=== PATIENT | female | born 1995 | race Caucasian/White ===

== ENCOUNTER 2024-05-25 13:39 | Emergency (ER) | payer MEDICAID, SELFPAY ==
[2024-05-25 13:40] VITALS: BMI 32.1
[2024-05-25 13:50] VITALS: BP 107/77; PULSE 105; RESP 18; TEMP 36.8; O2SAT 98
--- NOTE | 2024-05-25 13:54 | EDRME_ITS ---
Rapid Medical Screening Exam [facility] Arrival date/time: 05/25/24 13:39 29-year-old female presents to the emergency department complaints of nausea vomiting and diarrhea Chief Complaint: Abdominal Pain Vital signs: Vital Signs Temperature 98.3 F 05/25/24 13:50 Pulse Rate 105 H 05/25/24 13:50 Respiratory Rate 18 05/25/24 13:50 Blood Pressure 107/77 05/25/24 13:50 Pulse Oximetry (%) 98 05/25/24 13:50 Oxygen Delivery Method Room Air 05/25/24 13:50
[2024-05-25 14:37] LABS: Basophils % (Auto) 0 % (0-2.5); Eosinophils # (Auto) 0.2 Thou/mm3 (0.0-0.5); Eosinophils % (Auto) 2 % (0-10); Hematocrit 43.8 % (36.0-46.0); Hemoglobin 15.1 g/dL (12.0-16.0); Immature Granulocytes % (Auto) 0 % (0-0); Immature Granulocytes Auto 0.03 Thou/mm3 (0.00-0.00); Lymphocytes # (Auto) 2.4 Thou/mm3 (1.0-4.8); Lymphocytes % (Auto) 25 % (10-50); Mean Corpuscular HGB Conc 34.5 g/dl (31.0-37.0); Mean Corpuscular Hemoglobin 30.5 pg (25.0-35.0); Mean Corpuscular Volume 89 fL (80-100); Monocytes # (Auto) 0.6 Thou/mm3 (0.0-0.8); Monocytes % (Auto) 6 % (0-12); Neutrophils # (Auto) 6.4 Thou/mm3 (1.8-7.7); Neutrophils % (Auto) 66 % (37-80); Nucleated Red Blood Cell % 0 /100 WBC (0); Platelet Count 277 Thou/mm3 (140-440); RDW Standard Deviation 42.9 fL (36.4-46.3); Red Blood Count 4.95 Miln/mm3 (4.00-5.20); White Blood Count 9.7 Thou/mm3 (3.6-11.0)
[2024-05-25 14:41] LABS: Collection Type, Urine Clean Catch
[2024-05-25 14:50] LABS: HCG Qualitative,Urine Negative
[2024-05-25 14:51] LABS: Bacteria,Urine Rare; Bilirubin,Urine Negative (Negative); Blood,Urine Negative (Negative); Clarity,Urine Clear (Clear/Hazy); Color,Urine Yellow (Lt Yel-Yel); Culture Indicated,Urine Not Indicated; Glucose, Urine Negative (Negative); Ketones,Urine Negative (Negative); Leukocyte Esterase,Urine Negative (Negative); Nitrite,Urine Negative (Negative); PH,Urine 5.5 (5.0-7.0); Protein,Urine Trace (Neg - Trace); RBC,Urine 3 /hpf (0-3); Specific Gravity,Urine 1.032 (1.001-1.035); Squamous Epithelial Cell,Urine 2 /hpf (0-5); Urobilinogen,Urine Negative mg/dL (0.0-1.0); WBC,Urine < 1 /hpf (0-5)
[2024-05-25 14:53] LABS: Alanine Aminotransferase 12 U/L (10-49); Albumin, Serum 4.9 gm/dL (3.5-5.0); Albumin/Globulin Ratio 1.6 (1.2-2.2); Alkaline Phosphatase 67 U/L (46-116); Anion Gap 7 (7-16); Aspartate Amino Transferase 13 U/L (0-34); BUN/Creatinine Ratio 15 Ratio (12-20); Bilirubin,Total 0.9 mg/dL (0.3-1.2); Blood Urea Nitrogen 12 mg/dL (9-23); Calcium 9.5 mg/dL (8.3-10.6); Calcium (Corrected) 9.5 mg/dL (8.5-10.1); Carbon Dioxide 23.1 mMol/L (20.0-31.0); Chloride 110 mMol/L (98-107); Creatinine (Component) 0.8 mg/dL (0.6-1.3); Estimated Creatinine Clearance 107.4 mL/min (>60); Globulin 3.1 gm/dL (2.3-3.5); Glucose 89 mg/dL (74-106); Lipase 35 U/L (12-53); Osmolality,Calculated 278 (275-295); Potassium 4.2 mMol/L (3.4-5.1); Sodium 140 mMol/L (136-145); eGFR > 60 See Note
[2024-05-25 17:00] VITALS: BP 132/91; PULSE 90; RESP 18; TEMP 36.6; O2SAT 99
--- NOTE | 2024-05-25 17:21 | EDNOTE_ITS ---
ED Abdominal Pain RME/HPI General Chief Complaint: Abdominal Pain Stated complaint: ABD PAIN/VOMITING/DIARRHEA X 4 DAYS Time seen by provider: 05/25/24 17:08 Arrival date/time: 05/25/24 13:39 RME / HPI RME / HPI narrative: 29-year-old female patient with remote history of Crohn's disease in the past, came in for evaluation regarding diffuse abdominal pain. Patient's been having on and off diffuse abdominal pain for 4 days associated with nausea vomiting and diarrhea. Patient denies any fever denies any other complaints. Patient abdominal surgery includes laparoscopic cholecystectomy. Related Data Home Medications ?Medication ?Instructions ?Recorded ?Confirmed Vitamin * 1 tab PO QDAY #0 t abs 07/19/13 Previous Rx's ?Medication ?Instructions ?Recorded dicyclomine 20 mg tablet 20 mg PO BID PRN abdominal p ain 05/25/24 #30 tabs ondansetron HCl 4 mg tablet 4 mg PO Q8H PRN nausea and 05/25/24 vomiting 5 days #20 tabs pantoprazole 40 mg tablet,delayed 40 mg PO QDAY #20 ta bs 05/25/24 release (Protonix) Allergies Allergy/AdvReac Type Severity Reaction Status Date / Time red dye Allergy Intermediate N & V/FLU Verified 05/25/24 13:43 LIKE SYMPTOMS Review of Systems Review of Systems Narrative Review of Systems: Review of system reviewed and within normal limits except mentioned in HPI ED Exam Narrative Physical exam: VITAL SIGNS: Reviewed. GENERAL APPEARANCE: Alert and interactive, follows commands, no acute distress, HEAD AND FACE: Non-traumatic. ENT: PERRL, pink conjunctivitis, eyelid no trauma, Mucous membrane moist. NECK: Supple, nontender, no nuchal rigidity. CHEST: No tenderness, no crepitus, no paradoxical movement, no retractions. LUNGS: Clear, well ventilated, symmetric, no rales, no wheezing, no ronchi, no stridor, good breath sounds bilaterally. HEART: Regular rate, regular rhythm, no murmur, no gallops. ABDOMEN: Soft, positive bowel sounds, nondistended, no guarding, nontender, no rebound, no masses, RECTAL: Deferred. GENITAL: Deferred. NEUROLOGICAL: Gross motor function intact sensory function intact, Appropriate f or age. MUSCULOSKELETAL: low back nontender, full range of motion. EXTREMITIES: Nontender, full range of motion. SKIN: Color pink, dry, no rash, no lacerations, no abrasions, no contusions. LYMPHATICS: Deferred. Course Quality Measures none Orders Category Date Time Status CBC Stat Lab 05/25/24 14:18 Completed Comprehensive Metabolic Panel Stat Lab 05/25/24 14:18 Completed HCG Qualitative,Urine Stat Lab 05/25/24 14:25 Completed Lipase Stat Lab 05/25/24 14:18 Completed UA, C/S IF [Urinalysis, C/S if Indicated] Stat Lab 05/25/24 14:25 Completed Vital Signs Vital signs: Vital Signs Temperature 98.3 F 05/25/24 13:50 Pulse Rate 105 H 05/25/24 13:50 Respiratory Rate 18 05/25/24 13:50 Blood Pressure 107/77 05/25/24 13:50 Pulse Oximetry (%) 98 05/25/24 13:50 Oxygen Delivery Method Room Air 05/25/24 13:50 Abdominal Pain MDM MDM Narrative MDM Narrative:: 29-year-old female patient with remote history of Crohn's disease in the past, came in for evaluation regarding diffuse abdominal pain. Patient's been having on and off diffuse abdominal pain for 4 days associated with nausea vomiting and diarrhea. Patient denies any fever denies any other complaints. Patient abdominal surgery includes laparoscopic cholecystectomy. Patient CBC showed no leukocytosis. CMP unremarkable urinalysis no UTI. Patient was advised to closely follow-up with PCP and for referral to GI specialist for possible endoscopy colonoscopy for further evaluation regarding Crohn's disease. Patient appears nontoxic and hemodynamically stable. Patient discharged home and instructed to follow-up with primary care provider in 24 to 48 hours. Inst ructed to return to the emergency department immediately if worsening of symptoms Patient data External records reviewed:: None Clinical information provided by:: patient Social determinants that could affect healthcare access:: none Patient has the following chronic illnesses:: Remote history of Crohn's disease How is presenting disease/condition affected by chronic disease/condition?: exacerbated by Evaluation data The following diagnostics were reviewed and interpreted by me:: lab results Lab and/or radiology exams considered but not ordered:: None Interpretation Summary: None Medications / Prescriptions Medications or Prescriptions considered but not ordered:: None Medication administrations:: None Consultations Consultation(s) initiated? (list below): No Diagnosis Differential diagnosis abdominal pain: abdominal pain, gastroenteritis and other (Nausea vomiting) Most likely diagnosis given after review of the tests above:: Nausea vomiting, abdominal pain Admission Indicated Admission indicated?: not indicated Explain why admission is indicated or not indicated:: Stable Admission Request Was there a request for admission?: No Disposition Plan Disposition Plan: Discharge Discharge Attestation Discharge Attestation: The patient was given an opportunity to ask questions and understood the discharge instructions. Discharge instructions specifically effects, indications for sooner follow up or return to the emergency department, and the expected course of current diagnosis. Patient condition: Stable Discharge Plan Plan Patient Disposition: HOME (Self Care) Disposition Comment: Stable Prescriptions/Referrals Prescriptions/Med Rec: New dicyclomine 20 mg tablet 20 mg PO BID PRN (Reason: abdominal pain) Qty: 30 0RF pantoprazole [Protonix] 40 mg tablet,delayed release (DR/EC) 40 mg PO QDAY Qty: 20 0RF ondansetron HCl 4 mg tablet 4 mg PO Q8H PRN (Reason: nausea and vomiting) 5 Days Qty: 20 0RF No Action Vitamin * 1 EACH tablet 1 tab PO QDAY Qty: 0 Referrals: Kolby Jay MD [Primary Care Provider] - In 1 week Problem List Clinical Impression: Nausea & vomiting, Abdominal pain Patient/Caregiver Discharge Instructions Discharge Activity: activity as tolerated Education Materials: Abdominal Pain Additional Instructions: Thank you for the opportunity for serving you today. You are stable for discharged . You are advised to: Follow-up with your PCP in 1 to 2 days as your PCP to refer you to a GI specialist to rule out Crohn's disease Return to ED for worsening of symptoms Increase oral fluids Take medication as prescribed Print Language: Nauruan Stand Alone Forms: [employer] Award Info., Work/School Release, Patient Portal Info Letter
== END 2024-05-25 17:28 | disposition home or self-care (01) ==
PROVIDERS: Nurse Practitioner Primary Care; Emergency Provider Emergency Medicine; PCP Family Medicine
DX: R10.84 Generalized abdominal pain (principal); R11.2 Nausea with vomiting, unspecified
CPT/HCPCS: 36415; 80053; 81001; 81025; 83690; 85025; 99283